=== PATIENT | female | born 1960 | race Caucasian/White ===

== ENCOUNTER 2018-03-04 14:47 | Emergency (ER) | payer BC ==
[2018-03-04] MEDS: Sodium Chloride 0.9% 1,000 ML IV SCH (15:54)
[2018-03-04] MEDS: Ondansetron 4 MG/2 ML SDV IVPUSH ONE (15:56)
[2018-03-04] MEDS: methylPREDNISolone Sodium Succinate 125 MG/2 ML SDV IVPUSH ONE (15:58)
[2018-03-04] MEDS: Potassium Chloride 20 MEQ in Premix Bag 1 BAG IV ONE (16:44)
[2018-03-04] MEDS: Ketorolac 30 MG/ML SDV IVPUSH ONE (16:45)
--- NOTE | 2018-03-04 16:58 | EDM.PDOC ---
ED HPI GENERAL MEDICAL PROBLEM - General Chief Complaint: Gastrointestinal Problem Stated Complaint: HEADACHE,VOMITING,DIARRHEA Time Seen by Provider: 03/04/18 15:15 Source of Information: Reports: Patient, Family History Limitations: Reports: No Limitations - History of Present Illness INITIAL COMMENTS - FREE TEXT/NARRATIVE: 57-year-old female was recently in the [facility], began becoming ill on Friday morning with nausea vomiting and watery diarrhea. This is a recurring syndrome for her after being exposed to seafood or shellfish which she feels she was exposed to over the weekend. No significant fevers or chills, she does have some abdominal cramping and is feeling weak, has not eaten anything in the last 48 hours. She has not seen any blood in the stool or emesis. Onset: Gradual (Started Friday) Duration: Day(s): (Two full days of symptoms) Severity: Moderate Associated Symptoms: Reports: Headaches, Nausea/Vomiting, Weakness Headache Pain Score (Numeric/FACES): 5 - Related Data Allergies Allergy/AdvReac Type Severity Reaction Status Date / Time codeine Allergy Rash Verified 12/31/15 15:05 erythromycin lactobionate Allergy Vomiting Verified 12/31/15 15:05 [From Erythrocin] Penicillins Allergy Rash Verified 12/31/15 15:05 shellfish derived Allergy Vomiting Verified 12/31/15 15:05 Sulfa (Sulfonamide Allergy Other Verified 12/31/15 15:05 Antibiotics) maxide Allergy Wheezing Uncoded 12/31/15 15:05 Home Meds: Home Meds Bacillus Coagulans [Probiotic] 1 tab PO DAILY 12/31/15 [History] Estradiol 1 mg PO DAILY 12/31/15 [History] Topiramate [Topamax] 100 mg PO BID 12/31/15 [History] amLODIPine Besylate [Amlodipine Besylate] 5 mg PO DAILY 12/31/15 [History] Propranolol HCl [Inderal LA] 160 mg PO DAILY 03/04/18 [History] Past Medical History HEENT History: Reports: Allergic Rhinitis, Sinusitis Cardiovascular History: Reports: Hypertension Respiratory History: Reports: Asthma Gastrointestinal History: Reports: GERD 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 Musculoskeletal History: Reports: Arthritis Neurological History: Reports: Migraines - Infectious Disease History Infectious Disease History: Reports: Chicken Pox, Measles, Mumps - Past Surgical History HEENT Surgical History: Reports: Laser Surgery GI Surgical History: Reports: Cholecystectomy Female Surgical History: Reports: Hysterectomy Social & Family History - Tobacco Use Smoking Status *Q: Never Smoker - Caffeine Use Caffeine Use: Reports: Coffee - Recreational Drug Use Recreational Drug Use: No ED ROS GENERAL - Review of Systems Review Of Systems: See Below Constitutional: Reports: Malaise, Decreased Appetite. Denies: Fever, Chills HEENT: Denies: Throat Pain Respiratory: Denies: Shortness of Breath Cardiovascular: Denies: Chest Pain GI/Abdominal: Reports: Abdominal Pain, Diarrhea, Nausea, Vomiting Musculoskeletal: Reports: Muscle Pain (Aches all over) Skin: Reports: No Symptoms Neurological: Reports: Headache Psychiatric: Reports: No Symptoms ED EXAM, GENERAL - Physical Exam Exam: See Below Exam Limited By: No Limitations General Appearance: Alert, No Apparent Distress (Patient looks uncomfortable but not distressed) Throat/Mouth: Other (Good moisture) Head: Atraumatic Respiratory/Chest: No Respiratory Distress Cardiovascular: Regular Rate, Rhythm GI/Abdominal: Soft, Tender (Somewhat uncomfortable with palpation across the upper abdomen, very active bowel sounds) Course - Vital Signs Last Recorded V/S: Last Vital Signs Temp 98.3 F 03/04/18 15:05 Pulse 74 03/04/18 18:25 Resp 16 03/04/18 18:25 BP 100/64 03/04/18 18:25 Pulse Ox 96 03/04/18 18:25 - Orders/Labs/Meds Labs: Laboratory Tests 03/04/18 03/04/18 03/04/18 Range/Units 15:48 15:52 15:52 WBC 6.5 (4.5-11.0) K/uL RBC 4.96 (3.30-5.50) M/uL Hgb 13.7 (12.0-15.0) g/dL Hct 42.9 (36.0-48.0) % MCV 87 (80-98) fL MCH 28 (27-31) pg MCHC 32 (32-36) % Plt Count 243 (150-400) K/uL Neut % (Auto) 54 (36-66) % Lymph % (Auto) 28 (24-44) % [place] % (Auto) 16 H (2-6) % Eos % (Auto) 1 L (2-4) % Baso % (Auto) 1 (0-1) % Sodium 139 L (140-148) mmol/L Potassium 2.8 L* (3.6-5.2) mmol/L Chloride 105 (100-108) mmol/L Carbon Dioxide 24 (21-32) mmol/L Anion Gap 12.8 (5.0-14.0) mmol/L BUN 9 (7-18) mg/dL Creatinine 0.9 (0.6-1.0) mg/dL Est Cr Clr Drug Dosing 63.55 mL/min Estimated GFR (MDRD) > 60 (>60) Glucose 92 (74-106) mg/dL Calcium 8.9 (8.5-10.1) mg/dL Magnesium 2.1 (1.8-2.4) mg/dL Total Bilirubin 0.3 (0.2-1.0) mg/dL AST 22 (15-37) U/L ALT 33 (12-78) U/L Alkaline Phosphatase 97 (46-116) U/L Total Protein 7.3 (6.4-8.2) g/dL Albumin 3.4 (3.4-5.0) g/dL Globulin 3.9 H (2.3-3.5) g/dL Albumin/Globulin Ratio 0.9 L (1.2-2.2) Meds: Medications Discontinued Medications Generic Name Dose Route Start Last Admin Trade Name Freq PRN Reason Stop Dose Admin Sodium Chloride 1,000 mls @ 1,000 mls/hr 03/04/18 16:00 03/04/18 15:54 Normal Saline IV 1,000 mls/hr ASDIRECTED TASHA Administration Potassium Chloride 20 meq/ 100 mls @ 50 mls/hr 03/04/18 16:38 03/04/18 16:44 Premix IV 03/04/18 18:37 50 mls/hr ONETIME ONE Administration Ketorolac Tromethamine 30 mg 03/04/18 16:38 03/04/18 16:45 Toradol IVPUSH 03/04/18 16:39 30 mg ONETIME ONE Administration Methylprednisolone Sodium Succinate 62.5 mg 03/04/18 15:49 03/04/18 15:58 Solu-Medrol IVPUSH 03/04/18 15:50 62.5 mg ONETIME ONE Administration Ondansetron HCl 4 mg 03/04/18 15:49 03/04/18 15:56 Zofran IVPUSH 03/04/18 15:50 4 mg ONETIME ONE Administration - Re-Assessments/Exams Free Text/Narrative Re-Assessment/Exam: 03/04/18 16:58 An IV was placed and the patient was given 1 L of normal saline, 4 mg of IV Zofran, and 30 mg of IV Toradol for her headache. CBC CMP were obtained. 03/04/18 16:59 Potassium is only 2.8, so 20 mEq of KCl was added to the IV regimen. The remaining labs including CBC were all normal. Departure - Departure Time of Disposition: 18:50 Disposition: Home, Self-Care 01 Condition: Good Clinical Impression: Gastroenteritis, Hypokalemia - Discharge Information Instructions: Dehydration, Adult, [id number] Referrals: Paola Irvin MD [Primary Care Provider] - Forms: ED Department Discharge Care Plan Goals: Increase activity and diet as tolerated, potassium rich foods such as bananas is important. Consider rechecking again in 24-48 hours if not improving.
[2018-03-04 18:25] VITALS: BP 100/64
== END 2018-03-04 18:50 | disposition home or self-care (01) ==
LOC: JP.ED 14:47
DX: K52.9 Noninfective gastroenteritis and colitis, unspecified (principal); E87.6 Hypokalemia; I10 Essential (primary) hypertension; Z79.899 Other long term (current) drug therapy; Z88.8 Allergy status to other drugs, medicaments and biological substances; Z88.5 Allergy status to narcotic agent; Z88.0 Allergy status to penicillin; Z91.013 Allergy to seafood; Z88.1 Allergy status to other antibiotic agents; Z88.2 Allergy status to sulfonamides
CPT/HCPCS: 36415; 80053; 83735; 85025; 96361; 96374; 96375; 99284; J1885; J2405; J2930; J3480; J7030

== ENCOUNTER 2018-10-11 08:41 | Emergency (ER) | payer BC ==
[2018-10-11 08:51] VITALS: BP 150/87
[2018-10-11] MEDS ORDERED: Prochlorperazine 10 MG/2 ML SDV IM ONE (09:20)
--- NOTE | 2018-10-11 09:24 | EDM.PDOC ---
ED HPI GENERAL MEDICAL PROBLEM - General Chief Complaint: Headache Stated Complaint: MIGRAINE Time Seen by Provider: 10/11/18 09:07 Source of Information: Reports: Patient History Limitations: Reports: No Limitations - History of Present Illness INITIAL COMMENTS - FREE TEXT/NARRATIVE: This lady comes in for a headache which started at about 3 AM today. It is on the right side for head and is typical of migraine she's had in the past. Usually an injection of Toradol will help. She's never tried Compazine. She's not having any visual changes any kind of weakness or difficulty walking this is just a usual [id number]-mill headache. Headache Pain Score (Numeric/FACES): 6 - Related Data Allergies Allergy/AdvReac Type Severity Reaction Status Date / Time codeine Allergy Rash Verified 10/11/18 08:55 erythromycin lactobionate Allergy Vomiting Verified 10/11/18 08:55 [From Erythrocin] Penicillins Allergy Rash Verified 10/11/18 08:55 shellfish derived Allergy Vomiting Verified 10/11/18 08:55 Sulfa (Sulfonamide Allergy Other Verified 10/11/18 08:55 Antibiotics) maxide Allergy Wheezing Uncoded 10/11/18 08:55 Home Meds: Home Meds Bacillus Coagulans [Probiotic] 1 tab PO DAILY 12/31/15 [History] Topiramate [Topamax] 100 mg PO BID 12/31/15 [History] amLODIPine Besylate [Amlodipine Besylate] 5 mg PO DAILY 12/31/15 [History] Propranolol HCl [Inderal LA] 160 mg PO DAILY 03/04/18 [History] Past Medical History HEENT History: Reports: Allergic Rhinitis, Sinusitis Cardiovascular History: Reports: Hypertension Respiratory History: Reports: Asthma Gastrointestinal History: Reports: Cholelithiasis, GERD 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 Musculoskeletal History: Reports: Arthritis Neurological History: Reports: Migraines - Infectious Disease History Infectious Disease History: Reports: Chicken Pox, Measles, Mumps - Past Surgical History HEENT Surgical History: Reports: Laser Surgery GI Surgical History: Reports: Cholecystectomy Female Surgical History: Reports: Hysterectomy Social & Family History - Tobacco Use Smoking Status *Q: Never Smoker - Caffeine Use Caffeine Use: Reports: Coffee - Recreational Drug Use Recreational Drug Use: No ED ROS GENERAL - Review of Systems Review Of Systems: ROS reveals no pertinent complaints other than HPI. - Physical Exam Exam: See Below Exam Limited By: No Limitations General Appearance: Alert, WD/WN, Mild Distress Eye Exam: Bilateral Eye: EOMI, PERRL Head Exam: Atraumatic Neck: Supple Neuro Exam (Abbreviated): Alert, CN II-XII Intact, Normal Cognition, No Motor/ Sensory Deficits Psychiatric: Normal Affect Skin Exam: Warm, Dry Course - Vital Signs Last Recorded V/S: Last Vital Signs Temp 35.2 C 10/11/18 08:54 Pulse 70 10/11/18 08:54 Resp 17 10/11/18 08:54 BP 150/87 H 10/11/18 08:54 Pulse Ox 98 10/11/18 08:54 - Orders/Labs/Meds Meds: Medications Discontinued Medications Generic Name Dose Route Start Last Admin Trade Name Jai PRN Reason Stop Dose Admin Prochlorperazine Edisylate 10 mg 10/11/18 09:20 Compazine IM 10/11/18 09:21 ONETIME ONE - Re-Assessments/Exams Free Text/Narrative Re-Assessment/Exam: 10/11/18 09:28 This patient received Compazine 10 mg IM. If she wishes will also give her some Toradol before she leaves Departure - Departure Time of Disposition: 09:21 Disposition: Home, Self-Care 01 Condition: Fair Clinical Impression: Migraine - Discharge Information Referrals: Paola Irvin MD [Primary Care Provider] - Forms: ED Department Discharge Additional Instructions: You received an injection of Compazine. This medication as you know causes a lot of sedation and can impair driving or operating machinery for at least the next 12 hours. Sometimes it can cause extrapyramidal symptoms and Benadryl is an antidote for this. In fact you can take some Benadryl (25-50 mg) when you get home just to be sure that doesn't happen. If you wish you may also take an NSAID such as ibuprofen or naproxen for added benefit.
== END 2018-10-11 09:47 | disposition home or self-care (01) ==
LOC: JP.ED 08:41
DX: G43.909 Migraine, unspecified, not intractable, without status migrainosus (principal); Z88.8 Allergy status to other drugs, medicaments and biological substances; Z88.2 Allergy status to sulfonamides; Z91.013 Allergy to seafood
CPT/HCPCS: 96372; 99283; J0780